=== PATIENT | female | born 1990 | race Caucasian/White ===

== ENCOUNTER 2016-10-25 12:25 | Emergency (ER) | payer OTHER ==
[~2016-10-25] VITALS: Ht 162.6 cm; Wt 95.6 kg
[~2016-10-25 12:25] MED LIST: ADD/10 PO; AMPH1TAB83 PO; ATV/1 PO; BENEFIBER PO; BENZ100C18 PO; BIOTPOW17 PO; BISA10SU38 PR; CLC100 PO; ELET40TA PO; HYDR25SU20 PR; IBUP-1451 PO; LMC/150 PO; LORA10TA51 PO; LRT5 PO; METO1TAB54 PO; MRLP17 PO; NORT75CA4 PO; PROM25TA PO; QUET5TAB PO; SALI0.6510 NAE; SENN-65 PO; SERT50TA PO; SUMA100T16 PO
[2016-10-25 12:27] VITALS: TEMP 36.6; Ht 162.6 cm; Wt 95.6 kg
[2016-10-25] MEDS ORDERED: SODIUM CHLORIDE 0.9% 1000ML 1,000 ML IV STA (12:46)
[2016-10-25] MEDS ORDERED: ONDANSETRON INJ 2 MG/ML 2 ML VIAL IV STA (12:46)
[2016-10-25] MEDS ORDERED: AMPH30TA2 PO (12:51)
[2016-10-25] MEDS ORDERED: CLON0.2T PO (12:51)
[2016-10-25] MEDS ORDERED: WHEATAB2 PO (12:51)
[2016-10-25] MEDS ORDERED: HYDR-4380 PO (12:51)
[2016-10-25] MEDS ORDERED: POLY335019 PO (12:51)
[2016-10-25] MEDS ORDERED: TRAZ1TAB52 PO (12:51)
[2016-10-25] MEDS ORDERED: BIOT1TAB5 PO (12:51)
[2016-10-25] MEDS ORDERED: DOCU-94 PO (12:51)
[2016-10-25] MEDS ORDERED: PROM25TA9 PO (12:51)
[2016-10-25 13:12] LABS: URINE APPEARANCE TURBID (CLEAR); URINE BILIRUBIN NEG (NEG); URINE COLOR DK YELLOW; URINE EPITHELIAL CELL AUTO >30 /lpf (0-5); URINE NITRITE NEG (NEG); URINE PH 5.5 (4.5-7.5); URINE SPECIFIC GRAVITY 1.029 (1.000-1.030); UROBILINOGEN NEG (NEG)
[2016-10-25 13:20] LABS: MANUAL MICROSCOPIC REQUIRED? NO; REVIEW REQ? YES
[2016-10-25 13:27] LABS: BASO % 0.1 %; BASO ABS # 0.01 K/uL (0-0.2); COMPLETE YES; HEMATOCRIT 43.9 % (37-47); IG% 0.2 %; LYMPH % 9.6 %; LYMPH ABS # 0.89 K/uL (1.2-3.4); MEAN CELL VOLUME 92.4 fL (80-100); MEAN CORPUSCULAR HEMOGLOBIN 33.9 pg (25-34); MEAN CORPUSCULAR HGB CONC 36.7 g/dl (32-36); NEUT % 89.1 %; PLATELET COUNT 276 K/uL (130-400); RED BLOOD COUNT 4.75 M/uL (4.2-5.4)
[2016-10-25 13:34] LABS: ALT/SGPT 21 U/L (12-78); BLOOD UREA NITROGEN 11 mg/dl (7-18); BUN/CREATININE RATIO 10.5 (10-20); CALCIUM 10.2 mg/dl (8.5-10.1); CARBON DIOXIDE 26 mmol/L (21-32); CHLORIDE 105 mmol/L (98-107); GLUCOSE 115 mg/dl (70-99); POTASSIUM 3.9 mmol/L (3.5-5.1); SODIUM 139 mmol/L (136-145)
[2016-10-25 13:37] LABS: ALKALINE PHOSPHATASE 80 U/L (45-117); AST/SGOT 11 U/L (15-37)
--- NOTE | 2016-10-25 13:48 | DIAGNOSTIC IMAGING REPORT ---
BILIARY ULTRASOUND CLINICAL HISTORY: Right upper quadrant epigastric pain COMPARISON STUDY: CT scan dated 08/17/2011 FINDINGS: The pancreas appears sonographically normal. No hepatic masses are visualized. There is no right-sided hydronephrosis. There is no ductal dilatation. The gallbladder appears sonographically normal. The common bile duct measures 3 mm. IMPRESSION: Normal biliary ultrasound. Electronically signed by: Shahab Dickey M.D. 10/25/2016 1:47 PM Dictated Date/Time: 10/25/2016 1:46 PM
[2016-10-25] MEDS ORDERED: ONDA4TAB10 SL (14:03)
[2016-10-25 14:14] VITALS: BP 119/74; PULSE 75; O2SAT 96
--- NOTE | 2016-10-25 14:27 | EMERGENCY ROOM VISIT NOTE ---
History Report prepared by Cole: Raul Kam Under the Supervision of: Dr. Tc Meek M.D. First contact with patient: 12:39 Chief Complaint: VOMITING Stated Complaint: VOMITING, NAUSEA History of Present Illness The patient is a 25 year old female who presents to the Emergency Room with complaints of intermittent vomiting that started at 0300 this morning. She rates her discomfort as a 7/10 in severity. She states that she has been experiencing nausea and upper abdominal pain. The patient reports that she had no abdominal pain before vomiting, but admits to abdominal pain due to vomiting. She admits that she is currently nauseous but denies any abdominal pain. The patient states that her last bowel movement was yesterday, which she describes as normal. She states that her last normal menstrual period was three weeks ago and denies any abnormalities. The patient reports that she has a history of fibromyalgia, chronic migraines, scoliosis, and Chiari malformation. She admits that she is treated for hypertension. The patient admits that she was around sick coworkers who have also been vomiting. She denies any fever, diarrhea, abdominal surgery, possible , previous , gallbladder problems, and urinary symptoms. Source of History: patient Onset: 0300 this morning Position: other (global) Symptom Intensity: 7/10 Quality: other (vomiting) Timing: intermittent Associated Symptoms: + nausea, + abdominal pain, No fevers, No diarrhea, No urinary symptoms Review of Systems See HPI for pertinent positives & negatives. A total of 10 systems reviewed and were otherwise negative. Past Medical & Surgical Medical Problems: (1) Chiari malformation (2) Chronic migraine (3) Fibromyalgia (4) Scoliosis Family History Patient reports no known family medical history. Social History Smoking Status: Never Smoker Alcohol Use: occasionally Marital Status: in relationship Occupation Status: employed Current/Historical Medications Scheduled Amphetamine-Dextroamphetamine 30MG (Adderall 30MG), 30 MG PO BID Benzonatate (Tessalon Perles), 100-200 MG PO TID PRN Biotin (Biotin), 1 TAB PO DAILY Bisacodyl (Dulcolax), 1 SUPP MS PRN Clonidine Hcl (Catapres), 0.2 MG PO HS Docusate Sodium (Colace), 1 CAP PO BID Eletriptan Hydrobromide (Relpax), 40 MG PO DIRECTED Hydrocortisone Acetate (Rectal (Anusol-Hc), 25 MG MS AMHS Ibuprofen Tab (Motrin), 800 MG PO Q8H PRN Loratadine (Claritin), 10 MG PO DAILY PRN Lorazepam (Ativan), 1 MG PO BID PRN Metoclopramide Hcl (Reglan), 5 MG PO AC Nortriptyline Hcl (Pamelor), 75 MG PO BID Ondasetron Odt (Zofran Odt), 4 MG SL Q6H Saline ([place] Nasal [place]), 2 SPRAYS CURTIS PRN Sennosides-Docusate Sodium (Senokot S), 15 MG PO BID Sumatriptan Succinate (Imitrex), 100 MG PO UD Trazodone Hcl (Desyrel), 150 MG PO HS Wheat Dextrin (Benefiber), 1 TAB PO DAILY Scheduled PRN Hydrocodone-Acetaminophen (Hydrocodone/Acetaminophen), 5-500 MG PO Q4-6H PRN for Pain Polyethylene Glycol 3350 (Miralax), 17 GM PO DAILY PRN for Constipation Promethazine Hcl (Phenergan), 25 MG PO Q4H PRN for Nausea Allergies Coded Allergies: No Known Allergies (Verified , 10/25/16) Physical Exam Vital Signs Date Time Temp Pulse Resp B/P (MAP) Pulse Ox O2 Delivery O2 Flow Rate FiO2 10/25/16 14:14 75 17 119/74 96 10/25/16 12:27 36.6 80 20 144/84 97 Room Air Physical Exam Constitutional: Vital signs reviewed. Eyes: Pupils are equal round reactive to light. Conjunctiva are noninjected. ENT: Pharynx is clear without erythema or exudate. Mucous membranes are moist. Neck supple without meningeal signs. Respiratory: Clear to auscultation bilaterally. Breath sounds are equal bilaterally. Cardiovascular: Regular rate and rhythm. No rubs or gallops. GI: Soft, nondistended with mild epigastric and right upper quadrant tenderness. No Jones's sign. Bowel sounds are present. Musculoskeletal: No peripheral edema. No CVA tenderness. Integumentary: No cyanosis. Neurological: The patient is awake and alert. No focal deficits. Psychiatric: Normal affect. epigastric ruq mu Medical Decision & Procedures ER Provider Diagnostic Interpretation: Radiology results as stated below per my review and the radiologist's interpretation: BILIARY ULTRASOUND CLINICAL HISTORY: Right upper quadrant epigastric pain COMPARISON STUDY: CT scan dated 08/17/2011 FINDINGS: The pancreas appears sonographically normal. No hepatic masses are visualized. There is no right-sided hydronephrosis. There is no ductal dilatation. The gallbladder appears sonographically normal. The common bile duct measures 3 mm. IMPRESSION: Normal biliary ultrasound. Electronically signed by: Shahab Dickey M.D. 10/25/2016 1:47 PM Dictated Date/Time: 10/25/2016 1:46 PM Laboratory Results 10/25/16 13:00 Red Blood Count 4.75, Mean Corpuscular Volume 92.4, Mean Corpuscular Hemoglobin 33.9, Mean Corpuscular Hemoglobin Concent 36.7, Mean Platelet Volume 11.0, Neutrophils (%) (Auto) 89.1, Lymphocytes (%) (Auto) 9.6, Monocytes (%) (Auto) 1.0, Eosinophils (%) (Auto) 0.0, Basophils (%) (Auto) 0.1, Neutrophils # (Auto) 8.29, Lymphocytes # (Auto) 0.89, Monocytes # (Auto) 0.09, Eosinophils # (Auto) 0.00, Basophils # (Auto) 0.01 10/25/16 13:00 Test 10/25/16 12:50 10/25/16 13:00 Urine Color DK YELLOW Urine Appearance TURBID (CLEAR) Urine pH 5.5 (4.5-7.5) Urine Specific [place] 1.029 (1.000-1.030) Urine Protein TRACE (NEG) Urine Glucose (UA) NEG (NEG) Urine Ketones 2+ (NEG) Urine Occult Blood NEG (NEG) Urine Nitrite NEG (NEG) Urine Bilirubin NEG (NEG) Urine Urobilinogen NEG (NEG) Urine Leukocyte Esterase MODERATE (NEG) Urine WBC (Auto) 0 /hpf (0-5) Urine RBC (Auto) 0-4 /hpf (0-4) Urine Hyaline Casts (Auto) 0 /lpf (0-5) Urine Epithelial Cells (Auto) >30 /lpf (0-5) Urine Bacteria (Auto) 1+ (NEG) Urine Crystals AMORPHOUS SEDIMENT (NONE Urine Pathogenic Casts /lpf (0) Urine Test NEG (NEG) White Blood Count 9.30 K/uL (4.8-10.8) Red Blood Count 4.75 M/uL (4.2-5.4) Hemoglobin 16.1 g/dL (12.0-16.0) Hematocrit 43.9 % (37-47) Mean Corpuscular Volume 92.4 fL (80-100) Mean Corpuscular Hemoglobin 33.9 pg (25-34) Mean Corpuscular Hemoglobin Concent 36.7 g/dl (32-36) Platelet Count 276 K/uL (130-400) Mean Platelet Volume 11.0 fL (7.4-10.4) Neutrophils (%) (Auto) 89.1 % Lymphocytes (%) (Auto) 9.6 % Monocytes (%) (Auto) 1.0 % Eosinophils (%) (Auto) 0.0 % Basophils (%) (Auto) 0.1 % Neutrophils # (Auto) 8.29 K/uL (1.4-6.5) Lymphocytes # (Auto) 0.89 K/uL (1.2-3.4) Monocytes # (Auto) 0.09 K/uL (0.11-0.59) Eosinophils # (Auto) 0.00 K/uL (0-0.5) Basophils # (Auto) 0.01 K/uL (0-0.2) RDW Standard Deviation 37.7 fL (36.4-46.3) RDW Coefficient of Variation 11.2 % (11.5-14.5) Immature Granulocyte % (Auto) 0.2 % Immature Granulocyte # (Auto) 0.02 K/uL (0.00-0.02) Anion Gap 8.0 mmol/L (3-11) Est Creatinine Clear Calc Drug Dose 94.8 ml/min Estimated GFR () 89.4 Estimated GFR (Non- 77.2 BUN/Creatinine Ratio 10.5 (10-20) Calcium Level 10.2 mg/dl (8.5-10.1) Total Bilirubin 0.4 mg/dl (0.2-1) Direct Bilirubin < 0.1 mg/dl (0-0.2) Aspartate Amino Transf (AST/SGOT) 11 U/L (15-37) Alanine Aminotransferase (ALT/SGPT) 21 U/L (12-78) Alkaline Phosphatase 80 U/L (45-117) Total Protein 8.6 gm/dl (6.4-8.2) Albumin 4.2 gm/dl (3.4-5.0) Lipase 90 U/L (73-393) Laboratory results as reviewed by me. Medications Administered Medications (Trade) Dose Ordered Sig/Margarito Route Start Time Stop Time Status Last Admin Dose Admin Ondansetron HCl (Zofran Inj) 4 mg NOW STAT IV 10/25/16 12:46 10/25/16 12:47 DC 10/25/16 12:59 4 MG Sodium Chloride 1,000 ml @ 999 mls/hr Q1H1M STAT IV 10/25/16 12:46 10/25/16 13:46 DC 10/25/16 12:57 999 MLS/HR ED Course 1241: The patient was evaluated in room B12B. A complete history and physical exam was performed. 1246: Ordered Sodium Chloride 1000 ml @ 999 mls/hr IV, Zofran Injection 4 mg IV. 1358: I reviewed test results including UA with the patient. She prefers to hold off on antibiotic therapy until cultures are resulted. She will see if she has a similar finding with her fleet coordinator. The patient is ready for discharge. Medical Decision This is a 25-year-old female who presents with vomiting and upper abdominal pain. Differential diagnosis includes gastritis, foodborne illness, gastroparesis, peptic ulcer disease, cholelithiasis, pancreatitis. I did perform a limited focused review of portions of the patient's old chart on the electronic medical record. The patient has had no recent pertinent visits to this hospital. I did evaluate the patient as noted above. IV access was established. I did treat the patient with Zofran and normal saline IV. I did order and personally review the patient's urinalysis as described above. Findings are equivocal. The urine culture was sent. I did order and review the patient's blood work as noted in the electronic medical record. Her white blood cell count is not elevated. I did order an ultrasound of the right upper quadrant. I did review the images myself as well as the radiology report as described above. There is no evidence of gallbladder disease or acute abnormality. I did reevaluate the patient. She states she is feeling much better. I did discuss the test results with her including the equivocal urinalysis. She stated that she had similar findings when she was tested at her fleet coordinator office. She is currently not having any burning on urination. She has had some frequency but she prefers not to be treated with antibiotics at this time and would prefer to wait for the culture results. The patient was discharged home with a prescription for Zofran and advised follow up with her doctor. Medication Reconcilliation Current Medication List: was personally reviewed by me Blood Pressure Screening Patient's blood pressure: Elevated blood pressure Impression Primary Impression: Vomiting Additional Impression: Upper abdominal pain Scribe Attestation The scribe's documentation has been prepared under my direct and personally reviewed by me in its entirety. I confirm that the note above accurately reflects all work, treatment, procedures, and medical decision making performed by me. Departure Information Dispostion Home / Self-Care Prescriptions Ondasetron Odt (ZOFRAN ODT) 4 Mg Tab 4 MG SL Q6H for Nausea, #6 TAB Prov: Tc Meek M.D. 10/25/16 Referrals Violette Yu M.D. (PCP) Forms HOME CARE DOCUMENTATION FORM, IMPORTANT VISIT INFORMATION Patient Instructions ED Nausea Vomiting, My [facility] Additional Instructions You have been examined and treated today on an emergency basis only. This is not a substitute for, or an effort to provide, complete comprehensive medical care. It is impossible to recognize and treat all injuries or illnesses in a single emergency department visit. It is therefore important that you follow up closely with your physician. Call as soon as possible for an appointment. Return for worsening symptoms or if you develop fever, black or tarry stools, or any other concerning symptoms. Problem Qualifiers Primary Impression: Vomiting Vomiting type: unspecified Vomiting Intractability: non-intractable Nausea presence: with nausea Qualified Codes: R11.2 - Nausea with vomiting, unspecified
== END 2016-10-25 14:15 | disposition home or self-care (01) ==
LOC: C.EDB 12:26
DX: R11.2 Nausea with vomiting, unspecified (principal); R10.10 Upper abdominal pain, unspecified; I10 Essential (primary) hypertension; M41.9 Scoliosis, unspecified

== ENCOUNTER 2017-02-17 12:36 | Observation (INO) | payer OTHER ==
[~2017-02-17] VITALS: Ht 162.6 cm; Wt 84.7 kg
[~2017-02-17 12:36] MED LIST changes: -ADD/10 PO; -AMPH1TAB83 PO; +AMPH30TA2 PO; -BENEFIBER PO; -BENZ100C18 PO; +BIOT1TAB5 PO; -BIOTPOW17 PO; -CLC100 PO; +CLON0.2T PO; +DOCU-94 PO; -ELET40TA PO; +GABA800T PO; +HYDR-4380 PO; -IBUP-1451 PO; +IBUP600T44 PO; -LMC/150 PO; -LRT5 PO; -METO1TAB54 PO; -MRLP17 PO; +ONDA4TAB10 SL; +POLY335019 PO; -PROM25TA PO; +PROM25TA9 PO; -QUET5TAB PO; -SERT50TA PO; +TRAZ1TAB52 PO; +WHEATAB2 PO
[2017-02-17] MEDS ORDERED: SODIUM CHLORIDE 0.9% 1000ML 2,000 ML IV STA (12:52)
[2017-02-17] MEDS ORDERED: PROMETHAZINE HCL INJ 12.5 MG in SODIUM CHLORIDE 0.9% 50ML 50 ML IV STA (12:52)
[2017-02-17] MEDS ORDERED: KETOROLAC TROMETHAMINE 30 MG/ML VIAL IV STA (12:52)
[2017-02-17] MEDS ORDERED: ONDANSETRON INJ 2 MG/ML 2 ML VIAL IV STA (12:52)
--- NOTE | 2017-02-17 13:05 | EMERGENCY ROOM VISIT NOTE ---
History Report prepared by Cole: Tanner Jarrett Under the Supervision of: Dr. Jeff Tobias M.D. First contact with patient: 12:49 Chief Complaint: VOMITING Stated Complaint: VOMITING, HEADACHE Nursing Triage Summary: "I am vomiting and headache on and off for 3 weeks. I am unable to eat and I am losing a lot of weight." Abdominal pain. Denies diarrhea. History of Present Illness The patient is a 26 year old female who presents to the Emergency Room with complaints of persistent vomiting that the patient has been experiencing for the past month. She has been increasingly nauseous/vomiting more frequently for the past three days, and spiked a fever of 102.0 degrees yesterday. This fever broke spontaneously. She is also complaining of intermittent migraine headaches. The patient is currently on her menstrual cycle and commonly experiences migraines during that time. She has followed with a neurologist in the past, until his jail. Her migraine is sensitive to light and noise, and she denies any trauma that could have caused a headache. The patient continues to complain of global weakness, coughing, and nasal congestion. She notes that her girlfriend is a SOFTWARE DESIGN ANALYST and did have the flu this year. She has not had any imaging of her head for multiple years. The patient was recently diagnosed with a UTI and bacterial vaginosis and has been on 4 different antibiotics without relief. Source of History: patient Onset: One month lpta (worse past 3 days) Position: other (GI) Quality: other (Vomit) Timing: worsening, other (Persistent) Associated Symptoms: + fevers, + headache, + cough, + nausea, + urinary symptoms, + weakness Review of Systems See HPI for pertinent positives & negatives. A total of 10 systems reviewed and were otherwise negative. Past Medical & Surgical Medical Problems: (1) ADHD (2) Bipolar disorder (3) Drug abuse (4) Fibromyalgia (5) Gastroparesis (6) IBS (irritable bowel syndrome) (7) Migraine Surgical Problems: (1) History of tonsillectomy and adenoidectomy Family History Patient reports no known family medical history. Social History Smoking Status: Never Smoker Alcohol Use: occasionally Marital Status: in relationship Occupation Status: employed Current/Historical Medications Scheduled Amphetamine-Dextroamphetamine 30MG (Adderall 30MG), 30 MG PO BID Biotin (Biotin), 1 TAB PO DAILY Bisacodyl (Dulcolax), 1 SUPP IN PRN Docusate Sodium (Colace), 1 CAP PO BID Gabapentin (Neurontin), 1 TAB PO BID Hydrocortisone Acetate (Rectal (Anusol-Hc), 25 MG IN AMHS Ibuprofen (Motrin), 600 MG PO BID Loratadine (Claritin), 10 MG PO DAILY PRN Lorazepam (Ativan), 1 MG PO BID PRN Nortriptyline Hcl (Pamelor), 75 MG PO BID Saline ([place] Nasal [place]), 2 SPRAYS CURTIS PRN Sumatriptan Succinate (Imitrex), 100 MG PO UD Trazodone Hcl (Desyrel), 150 MG PO HS Wheat Dextrin (Benefiber), 1 TAB PO DAILY Scheduled PRN Ondasetron Odt (Zofran Odt), 4 MG SL Q6H PRN for Nausea Polyethylene Glycol 3350 (Miralax), 17 GM PO DAILY PRN for Constipation Promethazine Hcl (Phenergan), 25 MG PO Q4H PRN for Nausea Sennosides-Docusate Sodium (Senokot S), 15 MG PO BID PRN for Constipation Allergies Coded Allergies: No Known Allergies (Verified , 02/17/17) Physical Exam Vital Signs Date Time Temp Pulse Resp B/P (MAP) Pulse Ox O2 Delivery O2 Flow Rate FiO2 02/17/17 16:31 37.4 46 18 118/82 Room Air 02/17/17 15:12 48 18 161/84 100 Room Air 02/17/17 13:16 55 02/17/17 12:45 36.3 50 18 131/76 95 Room Air Physical Exam GENERAL: Patient is in mild distress secondary to nausea. HEENT: No acute trauma, normocephalic atraumatic, mucous membranes moist, no nasal congestion, no scleral icterus. NECK: No stridor, no adenopathy, no meningismus, trachea is midline. LUNGS: Scattered crackles at the bases especially on the right. No wheeze, breath sounds equal. HEART: Bradycardic with regular rhythm. No murmurs. ABDOMEN: Soft, nontender, bowel sounds positive, no hernias, no peritonitis. EXTREMITIES: No cyanosis or edema, full range of motion of all the joints without pain or difficulty, no signs for acute trauma. NEUROLOGIC: Oriented x 3, no acute motor or sensory deficits, no focal weakness. SKIN: No rash, no jaundice, no diaphoresis. Medical Decision & Procedures ER Provider Diagnostic Interpretation: Radiology results as stated below per my review and radiologist interpretation: CHEST ONE VIEW PORTABLE CLINICAL HISTORY: Cough. Vomiting. COMPARISON STUDY: Chest radiograph December 11, 2016. FINDINGS: Patient is mildly rotated. Lung volumes are normal. No pneumothorax or pleural effusion is present. Apparent left basilar opacity likely reflects normal vessels or atelectasis. Cardiomediastinal silhouette is unremarkable. Pulmonary vascularity is normal. IMPRESSION: No acute cardiopulmonary findings. Electronically signed by: Robin Sosa M.D. 02/17/2017 1:17 PM Dictated Date/Time: 02/17/2017 1:16 PM Laboratory Results 02/17/17 13:20 Red Blood Count 4.98, Mean Corpuscular Volume 90.6, Mean Corpuscular Hemoglobin 32.5, Mean Corpuscular Hemoglobin Concent 35.9, Mean Platelet Volume 10.4, Neutrophils (%) (Auto) 68.9, Lymphocytes (%) (Auto) 21.3, Monocytes (%) (Auto) 7.0, Eosinophils (%) (Auto) 2.2, Basophils (%) (Auto) 0.4, Neutrophils # (Auto) 6.40, Lymphocytes # (Auto) 1.98, Monocytes # (Auto) 0.65, Eosinophils # (Auto) 0.20, Basophils # (Auto) 0.04 02/17/17 13:20 Test 02/17/17 13:15 02/17/17 13:20 02/17/17 15:10 Influenza Type A Antigen Neg for Influ A (NEG) Influenza Type B Antigen Neg for Influ B (NEG) White Blood Count 9.29 K/uL (4.8-10.8) Red Blood Count 4.98 M/uL (4.2-5.4) Hemoglobin 16.2 g/dL (12.0-16.0) Hematocrit 45.1 % (37-47) Mean Corpuscular Volume 90.6 fL (80-100) Mean Corpuscular Hemoglobin 32.5 pg (25-34) Mean Corpuscular Hemoglobin Concent 35.9 g/dl (32-36) Platelet Count 315 K/uL (130-400) Mean Platelet Volume 10.4 fL (7.4-10.4) Neutrophils (%) (Auto) 68.9 % Lymphocytes (%) (Auto) 21.3 % Monocytes (%) (Auto) 7.0 % Eosinophils (%) (Auto) 2.2 % Basophils (%) (Auto) 0.4 % Neutrophils # (Auto) 6.40 K/uL (1.4-6.5) Lymphocytes # (Auto) 1.98 K/uL (1.2-3.4) Monocytes # (Auto) 0.65 K/uL (0.11-0.59) Eosinophils # (Auto) 0.20 K/uL (0-0.5) Basophils # (Auto) 0.04 K/uL (0-0.2) RDW Standard Deviation 39.8 fL (36.4-46.3) RDW Coefficient of Variation 12.1 % (11.5-14.5) Immature Granulocyte % (Auto) 0.2 % Immature Granulocyte # (Auto) 0.02 K/uL (0.00-0.02) Erythrocyte Sedimentation Rate 38 mm/hr (0-21) Anion Gap 7.0 mmol/L (3-11) Est Creatinine Clear Calc Drug Dose 88.7 ml/min Estimated GFR () 89.9 Estimated GFR (Non- 77.6 BUN/Creatinine Ratio 10.7 (10-20) Calcium Level 9.9 mg/dl (8.5-10.1) Magnesium Level 2.3 mg/dl (1.8-2.4) Total Bilirubin 0.4 mg/dl (0.2-1) Aspartate Amino Transf (AST/SGOT) 19 U/L (15-37) Alanine Aminotransferase (ALT/SGPT) 33 U/L (12-78) Alkaline Phosphatase 85 U/L (45-117) Total Protein 8.7 gm/dl (6.4-8.2) Albumin 4.3 gm/dl (3.4-5.0) Globulin 4.4 gm/dl (2.5-4.0) Albumin/Globulin Ratio 1.0 (0.9-2) Thyroid Stimulating Hormone (TSH) 0.602 uIu/ml (0.300-4.500) Human Chorionic Gonadotropin, Qual NEG (NEG) Urine Color YELLOW Urine Appearance CLOUDY (CLEAR) Urine pH >= 9.0 (4.5-7.5) Urine Specific [place] > 1.045 (1.000-1.030) Urine Protein NEG (NEG) Urine Glucose (UA) NEG (NEG) Urine Ketones 3+ (NEG) Urine Occult Blood 3+ (NEG) Urine Nitrite NEG (NEG) Urine Bilirubin NEG (NEG) Urine Urobilinogen NEG (NEG) Urine Leukocyte Esterase TRACE (NEG) Urine WBC (Auto) 5-10 /hpf (0-5) Urine RBC (Auto) 10-30 /hpf (0-4) Urine Hyaline Casts (Auto) 1-5 /lpf (0-5) Urine Epithelial Cells (Auto) >30 /lpf (0-5) Urine Bacteria (Auto) NEG (NEG) Urine Renal Epithelial Cells /lpf (0-5) Urine Crystals AMORPHOUS SEDIMENT (NONE Urine Opiates Screen POS (NEG) Urine Methadone, Qualitative NEG (NEG) Urine Barbiturates NEG (NEG) Urine Phencyclidine (PCP) Level NEG (NEG) Ur Amphetamine/Methamphetamine NEG (NEG) MDMA (Ecstasy) Screen POS (NEG) Urine Benzodiazepines Screen NEG (NEG) Urine Cocaine Metabolite POS (NEG) Urine Marijuana (THC) POS (NEG) Laboratory results reviewed by me. Medications Administered Medications (Trade) Dose Ordered Sig/Margarito Route Start Time Stop Time Status Last Admin Dose Admin Sodium Chloride 2,000 ml @ 999 mls/hr Q2H1M STAT IV 02/17/17 12:52 02/17/17 14:52 DC 02/17/17 13:37 999 MLS/HR Ondansetron HCl (Zofran Inj) 4 mg NOW STAT IV 02/17/17 12:52 02/17/17 13:01 DC 02/17/17 13:36 4 MG Promethazine HCl 12.5 mg/Sodium Chloride 50.5 ml @ 204 mls/hr NOW STAT IV 02/17/17 12:52 02/17/17 13:06 DC 02/17/17 13:38 204 MLS/HR Ketorolac Tromethamine (Toradol Inj) 30 mg NOW STAT IV 02/17/17 12:52 02/17/17 13:01 DC 02/17/17 13:37 30 MG Metoclopramide HCl (Reglan Inj) 10 mg NOW STAT IV 02/17/17 15:17 02/17/17 15:20 DC 02/17/17 16:03 10 MG Diphenhydramine HCl (Benadryl Inj) 25 mg NOW STAT IV 02/17/17 15:17 02/17/17 15:20 DC 02/17/17 16:02 25 MG Clonidine HCl (Catapres Tab) 0.2 mg NOW ONCE PO 02/17/17 15:45 02/17/17 15:46 DC 02/17/17 16:07 0.2 MG Lorazepam (Ativan Inj) 1 mg NOW STAT IV 02/17/17 15:40 02/17/17 15:41 DC 02/17/17 16:06 1 MG ECG Indication: vomiting Rate (beats per minute): 50 Rhythm: sinus bradycardia Findings: no acute ischemic change, no ectopy ED Course 1252: The patient was evaluated in room B11. A complete history and physical exam was performed. 1252: Ordered Toradol 30 mg IV, Promethazine HCl 50.5 mL @ 204 mL/hr IV, Zofran 4 mg IV, Sodium Chloride 2000 mL @ 999 mL/hr IV. 1515: I checked on the patient at this time. She is still actively vomiting. 1517: Ordered Benadryl 25 mg IV, Reglan 10 mg IV. 1520: I paged for the [facility] at this time. 1536: I spoke with the patient again. She now admits that she has been using heroin recently. She believes her symptoms today are the result of a withdrawal from heroin. 1540: Ordered Ativan 1 mg IV. 1545: Ordered Clonidine HCl 0.2 mg PO. 1607: I checked on the patient at this time. She is agreeable to admission. 1613: I discussed the case with Celina FERNANDEZ. She will evaluate the patient for further treatment Medical Decision Differential Diagnosis includes; Viral illness, migraine headache, UTI, electrolyte imbalance, anemia, dehydration, influenza, influenza like illness, pneumonia, intracranial bleed or mass. There is no leukocytosis or concerning anemia. No significant electrolyte abnormality, kidney failure, hepatitis. The patient appears to be in a euthyroid state. testing is negative. Urinalysis shows dehydration and contamination, no obvious infection. Influenza testing is negative. EKG shows a sinus bradycardia, no acute ischemia. Chest x-ray does not show pneumonia or CHF. Brain CT shows no acute bleed or mass effect. Urine tox shows cocaine, opiates, marijuana and ecstasy. The patient presents with a headache and persistent vomiting. She received IV saline, IV Zofran, IV Phenergan. She was eventually given IV Reglan and IV Benadryl. She received IV Ativan and was given a dose of oral clonidine. Initially, I could not explain the patient's persistent vomiting and symptoms. Her illness seems viral. Towards the end of her ER stay, she admitted that she has been using heroin and has not had heroin in about a day. She felt she was likely withdrawing, this did fit with her presentation. The patient requires hospitalization for further hydration and symptom control. I spoke with her and with case management. The on-call hospitalist was consulted. Consults Time Called: 152 Consulting Physician: Celina FERNANDEZ Returned Call: [phone] I discussed the case with Celina FERNANDEZ. She will evaluate the patient for further treatment Impression Primary Impression: Dehydration Additional Impressions: Vomiting Fatigue Drug withdrawal Scribe Attestation The scribe's documentation has been prepared under my direction and personally reviewed by me in its entirety. I confirm that the note above accurately reflects all work, treatment, procedures, and medical decision making performed by me. Departure Information Dispostion Being Evaluated By Hospitalist Prescriptions Ondasetron Odt (ZOFRAN ODT) 4 Mg Tab 4 MG SL Q6H Y for Nausea, #6 TAB Prov: Celina Noel .JIM 02/17/17 Referrals Violette Yu M.D. (PCP) Patient Instructions [facility] Problem Qualifiers
[2017-02-17] MEDS ORDERED: OPTIRAY 320 IV PRN (13:15)
--- NOTE | 2017-02-17 13:18 | DIAGNOSTIC IMAGING REPORT ---
CHEST ONE VIEW PORTABLE CLINICAL HISTORY: Cough. Vomiting. COMPARISON STUDY: Chest radiograph December 11, 2016. FINDINGS: Patient is mildly rotated. Lung volumes are normal. No pneumothorax or pleural effusion is present. Apparent left basilar opacity likely reflects normal vessels or atelectasis. Cardiomediastinal silhouette is unremarkable. Pulmonary vascularity is normal. IMPRESSION: No acute cardiopulmonary findings. Electronically signed by: Robin Sosa M.D. 02/17/2017 1:17 PM Dictated Date/Time: 02/17/2017 1:16 PM
[2017-02-17 13:50] LABS: BASO % 0.4 %; BASO ABS # 0.04 K/uL (0-0.2); EOS % 2.2 %; HEMATOCRIT 45.1 % (37-47); HEMOGLOBIN 16.2 g/dL (12.0-16.0); IG# 0.02 K/uL (0.00-0.02); LYMPH % 21.3 %; LYMPH ABS # 1.98 K/uL (1.2-3.4); MEAN CELL VOLUME 90.6 fL (80-100); MEAN CORPUSCULAR HEMOGLOBIN 32.5 pg (25-34); MEAN CORPUSCULAR HGB CONC 35.9 g/dl (32-36); MEAN PLATELET VOLUME 10.4 fL (7.4-10.4); MONO ABS # 0.65 K/uL (0.11-0.59); NEUT % 68.9 %; PLATELET COUNT 315 K/uL (130-400); RED CELL DISTRIBUTION WIDTH CV 12.1 % (11.5-14.5); RED CELL DISTRIBUTION WIDTH SD 39.8 fL (36.4-46.3); WHITE BLOOD COUNT 9.29 K/uL (4.8-10.8)
[2017-02-17 14:10] LABS: ALBUMIN 4.3 gm/dl (3.4-5.0); CALCIUM 9.9 mg/dl (8.5-10.1); CREATININE 0.99 mg/dl (0.60-1.20); POTASSIUM 3.6 mmol/L (3.5-5.1)
[2017-02-17 14:21] LABS: TOTAL PROTEIN 8.7 gm/dl (6.4-8.2)
[2017-02-17 14:36] LABS: INFLUENZA B ANTIGEN Neg for Influ B (NEG)
--- NOTE | 2017-02-17 15:01 | DIAGNOSTIC IMAGING REPORT ---
ANGIOGRAPHY HEAD COMBO HISTORY: Headache mental status change TECHNIQUE: Multiaxial CT images of the head were performed both before and after the intravenous administration of contrast to evaluate the major cerebral vessels. Maximum intensity projection images were also obtained. A dose lowering technique was utilized adhering to the principles of ALARA. COMPARISON: 01/22/2012 FINDINGS: There is no mass, hematoma, midline shift, or acute infarct. Visualized intracranial internal carotid arteries, distal vertebral arteries, and basilar artery are widely patent. There is no significant stenosis, occlusion, or aneurysm seen within the bilateral ACAs, MCAs, or flexible nanny. IMPRESSION: No significant stenosis, occlusion, or aneurysm within the [place]. Negative CT of the brain The above report was generated using voice recognition software. It may contain grammatical, syntax or spelling errors. Electronically signed by: Ryan Plaza M.D. 02/17/2017 3:00 PM Dictated Date/Time: 02/17/2017 2:57 PM
[2017-02-17] MEDS ORDERED: DiphenhydrAMINE HCL 50 MG/ML VIAL IV STA (15:17)
[2017-02-17] MEDS ORDERED: METOCLOPRAMIDE HCL INJ 5 MG/ML 2 ML VIAL IV STA (15:17)
[2017-02-17] MEDS ORDERED: LORAZEPAM 2 MG/ML 1 ML VIAL IV STA (15:40)
[2017-02-17] MEDS ORDERED: CLONIDINE HCL 0.1 MG TAB PO ONE (15:45)
[2017-02-17 16:31] VITALS: BP 118/82; PULSE 46; TEMP 37.4; Ht 162.6 cm; Wt 84.7 kg
[2017-02-17] MEDS ORDERED: ACETAMINOPHEN 325 MG TAB PO PRN (16:45)
[2017-02-17] MEDS ORDERED: ONDANSETRON INJ 2 MG/ML 2 ML VIAL IV PRN (16:45)
[2017-02-17] MEDS ORDERED: IV FLUIDS COMPLETED PRN (17:00)
[2017-02-17] MEDS ORDERED: DIAZEPAM INJ 5 MG/ML 2 ML CARP IV PRN (17:15)
[2017-02-17] MEDS ORDERED: NRN/600 PO (17:40)
[2017-02-17] MEDS ORDERED: ONDA4TAB10 SL (17:40)
[2017-02-17] MEDS ORDERED: hydrOXYzine HCL 25 MG TAB PO PRN (17:45)
--- NOTE | 2017-02-17 19:49 | History and Physical ---
History & Physical Date & Time of Service: Feb 17, 2017 ~ 16:15 Chief Complaint: Nausea, Vomiting Primary Care Physician: Violette Yu M.D. History of Present Illness 26 year old female who presents to the ED with nausea and vomiting. Patient reports her symptoms have been going on for the past two weeks. She has a history of heroin use and was clean from April 2016 until January 2017 however started using again. Patient feels like her symptoms are form her recent heroin use. She reports the last time she used was yesterday. Drug screen is also positive for cocaine and MDMA, patient thinks the heroin may have been laced with theses items. Drug screen is also positive for marijuana which she admits to using as well. With her nausea and vomiting, she denies hematemesis or coffee ground emesis. She has some lower abdominal cramping that she attributes to her menses. No diarrhea. She denies chest pain and shortness of breath. No lightheadedness, dizziness, diaphoresis, or syncopal events. She denies fever and chills. No urinary symptoms. In the ED, patient's labs are unremarkable. She was given several medications in the ED to aide in her symptoms: IV Toradol , IVF, IV compazine, IV Zofran, IV Reglan, IV Benadryl, IV Ativan, and PO clonidine. Patient reports the nausea is finally starting to subside. Past Medical/Surgical History Medical Problems: (1) ADHD Status: Chronic (2) Bipolar disorder Status: Chronic (3) Drug abuse Status: Chronic (4) Fibromyalgia Status: Chronic (5) Gastroparesis Status: Chronic (6) IBS (irritable bowel syndrome) Status: Chronic (7) Migraine Status: Chronic Surgical Problems: (1) History of tonsillectomy and adenoidectomy Status: Chronic Family History FH: breast cancer GRANDMOTHER Social History Smoking Status: Never Smoker Alcohol Use: none Drug Use: heroin, marijuana Immunizations History of Tetanus Vaccine?: Yes Tetanus Immunization Date: July 04, 2008 Multi-Drug Resistant Organisms History of MDRO: No Allergies Coded Allergies: No Known Allergies (Verified , 02/17/17) Home Medications Scheduled Amphetamine-Dextroamphetamine 30MG (Adderall 30MG), 30 MG PO BID Biotin (Biotin), 1 TAB PO DAILY Bisacodyl (Dulcolax), 1 SUPP NM PRN Docusate Sodium (Colace), 1 CAP PO BID Gabapentin (Neurontin), 1 TAB PO BID Hydrocortisone Acetate (Rectal (Anusol-Hc), 25 MG NM AMHS Ibuprofen (Motrin), 600 MG PO BID Loratadine (Claritin), 10 MG PO DAILY PRN Lorazepam (Ativan), 1 MG PO BID PRN Nortriptyline Hcl (Pamelor), 75 MG PO BID Saline ([place] Nasal [place]), 2 SPRAYS CURTIS PRN Sumatriptan Succinate (Imitrex), 100 MG PO UD Trazodone Hcl (Desyrel), 150 MG PO HS Wheat Dextrin (Benefiber), 1 TAB PO DAILY Scheduled PRN Ondasetron Odt (Zofran Odt), 4 MG SL Q6H PRN for Nausea Polyethylene Glycol 3350 (Miralax), 17 GM PO DAILY PRN for Constipation Promethazine Hcl (Phenergan), 25 MG PO Q4H PRN for Nausea Sennosides-Docusate Sodium (Senokot S), 15 MG PO BID PRN for Constipation Review of Systems ROS per HPI, all other systems reviewed and negative Physical Exam Vital Signs Date Time Temp Pulse Resp B/P (MAP) Pulse Ox O2 Delivery O2 Flow Rate FiO2 02/17/17 18:11 65 16 122/66 96 02/17/17 16:55 18 97 Room Air 02/17/17 16:31 37.4 46 18 118/82 Room Air 02/17/17 15:12 48 18 161/84 100 Room Air 02/17/17 13:16 55 02/17/17 12:45 36.3 50 18 131/76 95 Room Air General Appearance: WD/WN, + pertinent finding (restless however in no acute distress) Head: normocephalic, atraumatic Eyes: normal inspection, EOMI, sclerae normal ENT: hearing grossly normal, + pertinent finding (mucous membranes moist) Neck: supple, no JVD, trachea midline Respiratory/Chest: lungs clear, normal breath sounds, no respiratory distress Cardiovascular: regular rate, rhythm, no edema, normal peripheral pulses Abdomen/GI: normal bowel sounds, non tender, soft, no organomegaly Extremities/Musculoskelatal: normal inspection, no calf tenderness, normal capillary refill Neurologic/Psych: no motor/sensory deficits, alert, normal mood/affect, oriented x 3 Skin: normal color, warm/dry Diagnostics Laboratory Results Results Past 24 Hours Test 02/17/17 13:15 02/17/17 13:20 02/17/17 15:10 Range/Units Influenza Type A Antigen Neg for Influ A NEG Influenza Type B Antigen Neg for Influ B NEG White Blood Count 9.29 4.8-10.8 K/uL Red Blood Count 4.98 4.2-5.4 M/uL Hemoglobin 16.2 12.0-16.0 g/dL Hematocrit 45.1 37-47 % Mean Corpuscular Volume 90.6 80-100 fL Mean Corpuscular Hemoglobin 32.5 25-34 pg Mean Corpuscular Hemoglobin Concent 35.9 32-36 g/dl Platelet Count 315 130-400 K/uL Mean Platelet Volume 10.4 7.4-10.4 fL Neutrophils (%) (Auto) 68.9 % Lymphocytes (%) (Auto) 21.3 % Monocytes (%) (Auto) 7.0 % Eosinophils (%) (Auto) 2.2 % Basophils (%) (Auto) 0.4 % Neutrophils # (Auto) 6.40 1.4-6.5 K/uL Lymphocytes # (Auto) 1.98 1.2-3.4 K/uL Monocytes # (Auto) 0.65 0.11-0.59 K/uL Eosinophils # (Auto) 0.20 0-0.5 K/uL Basophils # (Auto) 0.04 0-0.2 K/uL RDW Standard Deviation 39.8 36.4-46.3 fL RDW Coefficient of Variation 12.1 11.5-14.5 % Immature Granulocyte % (Auto) 0.2 % Immature Granulocyte # (Auto) 0.02 0.00-0.02 K/uL Erythrocyte Sedimentation Rate 38 0-21 mm/hr Sodium Level 136 136-145 mmol/L Potassium Level 3.6 3.5-5.1 mmol/L Chloride Level 103 98-107 mmol/L Carbon Dioxide Level 26 21-32 mmol/L Anion Gap 7.0 3-11 mmol/L Blood Urea Nitrogen 11 7-18 mg/dl Creatinine 0.99 0.60-1.20 mg/dl Est Creatinine Clear Calc Drug Dose 88.7 ml/min Estimated GFR () 89.9 Estimated GFR (Non- 77.6 BUN/Creatinine Ratio 10.7 10-20 Random Glucose 99 70-99 mg/dl Calcium Level 9.9 8.5-10.1 mg/dl Magnesium Level 2.3 1.8-2.4 mg/dl Total Bilirubin 0.4 0.2-1 mg/dl Aspartate Amino Transf (AST/SGOT) 19 15-37 U/L Alanine Aminotransferase (ALT/SGPT) 33 12-78 U/L Alkaline Phosphatase 85 45-117 U/L Total Protein 8.7 6.4-8.2 gm/dl Albumin 4.3 3.4-5.0 gm/dl Globulin 4.4 2.5-4.0 gm/dl Albumin/Globulin Ratio 1.0 0.9-2 Thyroid Stimulating Hormone (TSH) 0.602 0.300-4.500 uIu/ml Human Chorionic Gonadotropin, Qual NEG NEG Urine Color YELLOW Urine Appearance CLOUDY CLEAR Urine pH >= 9.0 4.5-7.5 Urine Specific [place] > 1.045 1.000-1.030 Urine Protein NEG NEG Urine Glucose (UA) NEG NEG Urine Ketones 3+ NEG Urine Occult Blood 3+ NEG Urine Nitrite NEG NEG Urine Bilirubin NEG NEG Urine Urobilinogen NEG NEG Urine Leukocyte Esterase TRACE NEG Urine WBC (Auto) 5-10 0-5 /hpf Urine RBC (Auto) 10-30 0-4 /hpf Urine Hyaline Casts (Auto) 1-5 0-5 /lpf Urine Epithelial Cells (Auto) >30 0-5 /lpf Urine Bacteria (Auto) NEG NEG Urine Renal Epithelial Cells 0-5 /lpf Urine Crystals AMORPHOUS SEDIMENT NONE PRSENT Urine Opiates Screen POS NEG Urine Methadone, Qualitative NEG NEG Urine Barbiturates NEG NEG Urine Phencyclidine (PCP) Level NEG NEG Ur Amphetamine/Methamphetamine NEG NEG MDMA (Ecstasy) Screen POS NEG Urine Benzodiazepines Screen NEG NEG Urine Cocaine Metabolite POS NEG Urine Marijuana (THC) POS NEG Diagnostic Radiology HEAD CTA IMPRESSION: No significant stenosis, occlusion, or aneurysm within the [place]. Negative CT of the brain CXR IMPRESSION: No acute cardiopulmonary findings. Impression Assessment and Plan NAUSEA, VOMITING DRUG ABUSE - admit to tele - patient presenting with nausea and vomiting x 2 weeks; attributes her symptoms to resuming use of heroin - was clean from April 2016 until January; drug screen is also positive for cocaine and MDMA, patient thinks the heroin may have been laced with theses items. Drug screen is also shows marijuana which she admits to using as well - suspect symptoms are due to recent drug use, possible cannabis hyperemesis syndrome - continue supportive care with IVF and antiemetics; PRN clonidine and Valium for withdrawal symptoms - patient reports she has been on methadone in the past and is not interested in resuming - mental health consult re: substance abuse BIPOLAR DISORDER, ADHD - continue gabapentin, trazodone, nortriptyline, and Adderall DVT PROPHYLAXIS - SCDs, ambulate DISPO - The patient will be placed as observation status for now until further work up is complete. ADDENDUM: Saw/examined the patient in room B11 She is anxious, tremulous, cannot find a comfortable position. States she used heroin, which may have been laced with cocaine yesterday. [place] nauseous today. in the ED, was given Zofran, clonidine, but still no improvement Has had issues with heroin in the past; and was once on methadone. Refusing methadone this time Plan: Will control symptoms with clonidine PRN, Zofran, Phenergan PRN, Valium PRN psych consult, CM consulted for possible outpatient rehab Advanced Directives Existing Living Will: No Existing Power of Roving Weight Gauger: No VTE Prophylaxis VTE Risk Assessment Done? Y/N: Yes Risk Level: Low
[2017-02-17] MEDS: D5W AND NSS 1,000 ML IV SCH (19:51)
[2017-02-17] MEDS ORDERED: INFLUENZA VIRUS QUAD VACCINE 0.5 ML SYR IM. ONE (20:00)
[2017-02-17] MEDS ORDERED: INFLUENZA ADMINISTRATION CHARGE ONE (20:00)
[2017-02-17 20:01] VITALS: O2SAT 96
[2017-02-17] MEDS: AMPHETAMINE ASP/SULF/DEXTRAMPH 10 MG TAB PO SCH (20:32)
[2017-02-17] MEDS: GABAPENTIN 600 MG TAB PO SCH (20:32)
[2017-02-17] MEDS: NORTRIPTYLINE HCL 25 MG CAP PO SCH (20:33)
[2017-02-17] MEDS ORDERED: TRAZODONE HCL 50 MG TAB PO SCH (21:00)
--- NOTE | 2017-02-17 21:12 | DIAGNOSTIC IMAGING REPORT ---
KUB CLINICAL HISTORY: Abdominal pain and vomiting COMPARISON STUDY: No previous studies for comparison. FINDINGS: There is a mild spinal curvature convex to the right. There is no pathologic bowel dilatation. No transition zones are evident. There are tiny nonspecific pelvic basin calcifications. IMPRESSION: No evidence of pathologic bowel dilatation. Electronically signed by: Shahab Dickey M.D. 02/17/2017 9:10 PM Dictated Date/Time: 02/17/2017 9:10 PM
[2017-02-17] MEDS: CLONIDINE HCL 0.1 MG TAB PO PRN (21:18)
[2017-02-18] VITALS (8 sets, daily range): BP systolic 96–117; BP diastolic 57–72; PULSE 45–81; TEMP 36.5–37; O2SAT 92–96
[2017-02-18 07:28] LABS: HEMATOCRIT 37.9 % (37-47); HEMOGLOBIN 13.5 g/dL (12.0-16.0); MEAN CELL VOLUME 90.7 fL (80-100); MEAN CORPUSCULAR HEMOGLOBIN 32.3 pg (25-34); MEAN CORPUSCULAR HGB CONC 35.6 g/dl (32-36); MEAN PLATELET VOLUME 10.6 fL (7.4-10.4); PLATELET COUNT 283 K/uL (130-400); RED CELL DISTRIBUTION WIDTH CV 11.9 % (11.5-14.5); RED CELL DISTRIBUTION WIDTH SD 39.7 fL (36.4-46.3); WHITE BLOOD COUNT 11.88 K/uL (4.8-10.8)
[2017-02-18 08:06] LABS: CALCIUM 8.7 mg/dl (8.5-10.1); CREATININE 0.8 mg/dl (0.60-1.20); POTASSIUM 3.4 mmol/L (3.5-5.1)
[2017-02-18] MEDS: GABAPENTIN 600 MG TAB PO SCH (08:28)
[2017-02-18] MEDS: NORTRIPTYLINE HCL 25 MG CAP PO SCH ×2 (08:28→08:42)
[2017-02-18] MEDS: AMPHETAMINE ASP/SULF/DEXTRAMPH 10 MG TAB PO SCH (08:41)
[2017-02-18] MEDS: D5W AND NSS 1,000 ML IV SCH (08:41)
[2017-02-18] MEDS: CLONIDINE HCL 0.1 MG TAB PO PRN ×2 (08:44→14:25)
[2017-02-18] MEDS ORDERED: POTASSIUM CHLORIDE 20 MEQ TABCR PO ONE (16:00)
--- NOTE | 2017-02-18 16:03 | Progress Note ---
Medicine Progress Note Date & Time of Visit: Feb 18, 2017 at 16:03 . Subjective Doing well. No fever. No chest pain, cough, SOB. No nausea, vomiting, diarrhea. Would like to go home. . Objective Last 8 Hrs Date Time Temp Pulse Resp B/P (MAP) Pulse Ox O2 Delivery O2 Flow Rate FiO2 02/18/17 15:52 36.8 45 16 117/68 (84) 94 Room Air 02/18/17 12:00 Room Air 02/18/17 11:11 36.6 81 18 114/72 (86) 92 Room Air Physical Exam: General- no distress Eyes- anicteric Lungs- clear Heart- RRR Abdomen- + BS, soft, nontender Extremities- no pretibial edema or calf tenderness Neuro- alert, oriented Skin- warm & dry . Laboratory Results: Last 24 Hours Test 02/18/17 06:50 White Blood Count 11.88 K/uL Red Blood Count 4.18 M/uL Hemoglobin 13.5 g/dL Hematocrit 37.9 % Mean Corpuscular Volume 90.7 fL Mean Corpuscular Hemoglobin 32.3 pg Mean Corpuscular Hemoglobin Concent 35.6 g/dl RDW Standard Deviation 39.7 fL RDW Coefficient of Variation 11.9 % Platelet Count 283 K/uL Mean Platelet Volume 10.6 fL Sodium Level 140 mmol/L Potassium Level 3.4 mmol/L Chloride Level 108 mmol/L Carbon Dioxide Level 26 mmol/L Anion Gap 6.0 mmol/L Blood Urea Nitrogen 6 mg/dl Creatinine 0.80 mg/dl Est Creatinine Clear Calc Drug Dose 110.3 ml/min Estimated GFR () 116.3 Estimated GFR (Non- 100.3 BUN/Creatinine Ratio 7.9 Random Glucose 93 mg/dl Calcium Level 8.7 mg/dl Assessment & Plan NAUSEA / VOMITING Presented to ED with intermittent nausea and vomiting. LFT's OK. KUB unremarkable. Symptoms resolved. GI symptoms could be secondary to NSAID use, recreational drug use (including hyperemesis from marijuana), other etiologies. No further evaluation at this time since symptoms have improved. Further evaluation as outpatient if symptom worsen. HEADACHES Chronic migraine headaches. Severe headache day of admission. CT head and with CTA negative. Improved by discharge. Advised to avoid NSAID's if possible due to GI symptoms. Continue other usual meds. RECREATIONAL DRUG USE Tox screen + for opiates, MDMA, cocaine, marijuana. Patient admits using heroin nasally. Other substances may have been mixed with heroin without her knowledge. Counseling / rehab recommended and patient given resource information. VTE PROPHYLAXIS SCD's. DISPOSITION Discharge to home. Internal Medicine follow-up with Dr. Violette Yu. . Procedures: CT head CTA intracranial vessels . Current Inpatient Medications: Current Inpatient Medications Medications (Trade) Dose Ordered Sig/Margarito Route Start Time Stop Time Status Last Admin Dose Admin Ioversol (Optiray 320) 100 ml UD PRN IV 02/17/17 13:15 02/21/17 13:14 Acetaminophen (Tylenol Tab) 650 mg Q4H PRN PO 02/17/17 16:45 03/19/17 16:44 Ondansetron HCl (Zofran Inj) 4 mg Q6H PRN IV 02/17/17 16:45 03/19/17 16:44 02/17/17 19:41 4 MG Dextrose/Sodium Chloride 1,000 ml @ 80 mls/hr [id number] IV 02/17/17 20:00 03/19/17 19:59 02/18/17 08:41 80 MLS/HR Miscellaneous (Iv Fluids Completed) 1 ea PRN PRN N/A 02/17/17 17:00 02/17/18 16:59 Clonidine HCl (Catapres Tab) 0.1 mg Q6H PRN PO 02/17/17 17:15 03/19/17 17:14 02/18/17 14:25 0.1 MG Diazepam (Valium Inj) 5 mg Q6H PRN IV 02/17/17 17:15 03/19/17 17:14 Hydroxyzine HCl (Vistaril Tab) 25 mg HS PRN PO 02/17/17 17:45 03/19/17 17:44 Gabapentin (Neurontin Tab) 600 mg BID PO 02/17/17 21:00 03/19/17 20:59 02/18/17 08:28 600 MG Nortriptyline HCl (Pamelor Cap) 75 mg BID PO 02/17/17 21:00 03/19/17 20:59 Trazodone HCl (Desyrel Tab) 150 mg HS PO 02/17/17 21:00 03/19/17 20:59 02/17/17 20:32 150 MG Amphetamine Aspartate/ Amphetam Sulf (Amphetamine Aspartate/Amph Sulf/Dextramphet) 30 mg BID PO 02/17/17 21:00 03/19/17 20:59 02/18/17 08:41 30 MG
--- NOTE | 2017-02-18 16:11 | Discharge Instructions ---
Discharge Instructions Date of Service Feb 18, 2017. Admission Reason for Admission: nausea and vomiting . Discharge Discharge Diagnosis / Problem: nausea and vomiting Discharge Goals Goal(s): Improve disease control Activity Recommendations Activity Limitations: resume your previous activity . Instructions / Follow-Up Instructions / Follow-Up APPOINTMENTS: INTERNAL MEDICINE 02/23/2017 1:00 PM Violette Yu MD OTHER INSTRUCTIONS: Best to avoid pain medicines like ibuprofen (Motrin and Advil), naproxen (Aleve) , and other similar medications if possible because they can upset your stomach. May use acetaminophen (Tylenol Extra Strength) 2 pills every 8 hours as needed for pain. Please let Dr. Yu know if you continue to have stomach problems. Seek medical attention if you have: * temperature above 101 * chest pain, cough, or trouble breathing * abdominal pain, nausea, vomiting * diarrhea, dark stools or bloody stools * any unanswered questions or concerns Call 911 if symptoms are severe. Call if you have any questions or problems. My cell # is [phone]. You can also reach a [facility] hospitalist on duty at [facility] 24 hours a day by calling [phone]. Please take good care of yourself. Bg Miller . Current Hospital Diet Patient's current hospital diet: Regular Diet Discharge Diet Recommended Diet: Regular Diet Pending Studies Studies pending at discharge: no Medical Emergencies . Who to Call and When: Medical Emergencies: If at any time you feel your situation is an emergency, please call 911 immediately. . Non-Emergent Contact Non-Emergency issues call your: Primary Care Provider, Hospital Doctor . . "Provider Documentation" section prepared by Bg Miller. . VTE Core Measure Inpt VTE Proph given/why not?: SCD's
[2017-02-18] MEDS ORDERED: ACET-1138 PO (16:13)
--- NOTE | 2017-02-19 12:50 | Discharge Summary ---
Discharge Summary Date of Service Feb 19, 2017. Discharge Summary Admission Date: Feb 17, 2017 at 16:45 Discharge Date: Feb 18, 2017 Discharge Disposition: Home Principal Diagnosis: severe nausea / vomiting headache . Secondary Diagnoses/Problems: Chronic and Resolved Medical Problems: (1) ADHD Status: Chronic (2) Bipolar disorder Status: Chronic (3) Drug abuse Status: Chronic (4) Fibromyalgia Status: Chronic (5) Gastroparesis Status: Chronic (6) IBS (irritable bowel syndrome) Status: Chronic (7) Migraine Status: Chronic Surgical Problems: (1) History of tonsillectomy and adenoidectomy Status: Chronic . Procedures: CT head CTA intracranial vessels . Medication Reconciliation New Medications: Acetaminophen (Tylenol Extra Strength) 500 Mg Tab 1000 MG PO Q8H PRN for Pain, #30 TAB Continued Medications: Amphetamine-Dextroamphetamine 30MG (Adderall 30MG) 1 Tab Tab 30 MG PO BID, TAB Biotin (Biotin) 1,000 Mcg Tab 1 TAB PO DAILY Bisacodyl (Dulcolax) 10 Mg Sup 1 SUPP OK PRN, SUP Docusate Sodium (Colace) 100 Mg Cap 1 CAP PO BID for 30 Days, #60 CAP Gabapentin (Neurontin) 600 Mg Tab 1 TAB PO BID for 30 Days, #60 TAB 3 Refills Hydrocortisone Acetate (Rectal (Anusol-Hc) 25 Mg Sup 25 MG OK AMHS, SUP PRN Ibuprofen (Motrin) 600 Mg Tab 600 MG PO BID PRN for Pain, #15 TAB Take with food. Try not to use unless absolutely necessary. Loratadine (Claritin) 10 Mg Tab 10 MG PO DAILY PRN, TAB Lorazepam (Ativan) 1 Mg Tab 1 MG PO BID PRN, TAB Nortriptyline Hcl (Pamelor) 75 Mg Cap 75 MG PO BID, CAP Ondasetron Odt (Zofran Odt) 4 Mg Tab 4 MG SL Q6H PRN for Nausea, #6 TAB Polyethylene Glycol 3350 (Miralax) 1 Pow Pow 17 GM PO DAILY PRN for Constipation, #255 GM Promethazine Hcl (Phenergan) 25 Mg Tab 25 MG PO Q4H PRN for Nausea, TAB Saline ([place] Nasal [place]) 0.65 % Spr 2 SPRAYS CURTIS PRN Sennosides-Docusate Sodium (Senokot S) 1 Tab Tab 15 MG PO BID PRN for Constipation, TAB Sumatriptan Succinate (Imitrex) 100 Mg Tab 100 MG PO UD, TAB Trazodone Hcl (Desyrel) 150 Mg Tab 150 MG PO HS, TAB Wheat Dextrin (Benefiber) 1 Tab Tab 1 TAB PO DAILY Admission Information HPI (per Admitting provider): 26 year old female who presents to the ED with nausea and vomiting. Patient reports her symptoms have been going on for the past two weeks. She has a history of heroin use and was clean from April 2016 until January 2017 however started using again. Patient feels like her symptoms are form her recent heroin use. She reports the last time she used was yesterday. Drug screen is also positive for cocaine and MDMA, patient thinks the heroin may have been laced with theses items. Drug screen is also positive for marijuana which she admits to using as well. With her nausea and vomiting, she denies hematemesis or coffee ground emesis. She has some lower abdominal cramping that she attributes to her menses. No diarrhea. She denies chest pain and shortness of breath. No lightheadedness, dizziness, diaphoresis, or syncopal events. She denies fever and chills. No urinary symptoms. In the ED, patient's labs are unremarkable. She was given several medications in the ED to aide in her symptoms: IV Toradol , IVF, IV compazine, IV Zofran, IV Reglan, IV Benadryl, IV Ativan, and PO clonidine. Patient reports the nausea is finally starting to subside. . Physical Exam (per Admitting): General Appearance: WD/WN, + pertinent finding (restless however in no acute distress) Head: normocephalic, atraumatic Eyes: normal inspection, EOMI, sclerae normal ENT: hearing grossly normal, + pertinent finding (mucous membranes moist) Neck: supple, no JVD, trachea midline Respiratory/Chest: lungs clear, normal breath sounds, no respiratory distress Cardiovascular: regular rate, rhythm, no edema, normal peripheral pulses Abdomen/GI: normal bowel sounds, non tender, soft, no organomegaly Extremities/Musculoskelatal: normal inspection, no calf tenderness, normal capillary refill Neurologic/Psych: no motor/sensory deficits, alert, normal mood/affect, oriented x 3 Skin: normal color, warm/dry Hospital Course NAUSEA / VOMITING Presented to ED with intermittent nausea and vomiting. LFT's OK. Urine beta HCG negative. KUB unremarkable. Symptoms resolved. GI symptoms could be secondary to NSAID use, recreational drug use (including hyperemesis from marijuana), other etiologies. History of gastroparesis (mild) per gastric emptying scan 2008. GB US 10/25/[address] abdomen and pelvis 12/11/16 unremarkable except for slightly decreased attenuation of head of pancreas and moderate constipation (LFT's and lipase were normal at that time). No further evaluation at this time since symptoms have improved. Further evaluation as outpatient if symptoms recur / worsen. HEADACHES Chronic migraine headaches. Severe headache day of admission. CT head and with CTA negative. Improved by discharge. Advised to avoid NSAID's if possible due to GI symptoms. Continue other usual meds. RECREATIONAL DRUG USE Tox screen + for opiates, MDMA, cocaine, marijuana. Patient admits using heroin nasally. Some of the other substances detected on tox screen may have been mixed with heroin without her knowledge. Marijuana could be causing nausea & vomiting. Counseling / rehab recommended and patient given resource information. VTE PROPHYLAXIS SCD's. DISPOSITION Discharge to home. Internal Medicine follow-up with Dr. Violette Yu. . Total time spent on discharge = This includes examination of the patient, discharge planning, medication reconciliation, and communication with other providers. Discharge Instructions Date of Service Feb 18, 2017. Admission Reason for Admission: nausea and vomiting . Discharge Discharge Diagnosis / Problem: nausea and vomiting Discharge Goals Goal(s): Improve disease control Activity Recommendations Activity Limitations: resume your previous activity . Instructions / Follow-Up Instructions / Follow-Up APPOINTMENTS: INTERNAL MEDICINE 02/23/2017 1:00 PM Violette Yu MD OTHER INSTRUCTIONS: Best to avoid pain medicines like ibuprofen (Motrin and Advil), naproxen (Aleve) , and other similar medications if possible because they can upset your stomach. May use acetaminophen (Tylenol Extra Strength) 2 pills every 8 hours as needed for pain. Please let Dr. Yu know if you continue to have stomach problems. Seek medical attention if you have: * temperature above 101 * chest pain, cough, or trouble breathing * abdominal pain, nausea, vomiting * diarrhea, dark stools or bloody stools * any unanswered questions or concerns Call 911 if symptoms are severe. Call if you have any questions or problems. My cell # is [phone]. You can also reach a [facility] hospitalist on duty at [facility] 24 hours a day by calling [phone]. Please take good care of yourself. Bg Miller . Current Hospital Diet Patient's current hospital diet: Regular Diet Discharge Diet Recommended Diet: Regular Diet Pending Studies Studies pending at discharge: no Medical Emergencies . Who to Call and When: Medical Emergencies: If at any time you feel your situation is an emergency, please call 911 immediately. . Non-Emergent Contact Non-Emergency issues call your: Primary Care Provider, Hospital Doctor . . "Provider Documentation" section prepared by Bg Miller. . VTE Core Measure Inpt VTE Proph given/why not?: SCD's . Additional Copies To Violette Yu M.D.
== END 2017-02-18 17:25 | disposition home or self-care (01) ==
LOC: C.EDB 12:37 → C.2T 16:45 → ENRESERV 17:00
PROVIDERS: ADMIT Family Medicine; ATTEND Hospitalist
DX: R11.2 Nausea with vomiting, unspecified (principal); R51 Headache; R53.83 Other fatigue; F11.10 Opioid abuse, uncomplicated; F12.10 Cannabis abuse, uncomplicated; F90.9 Attention-deficit hyperactivity disorder, unspecified type; F31.9 Bipolar disorder, unspecified; M79.7 Fibromyalgia; K31.84 Gastroparesis; K58.9 Irritable bowel syndrome, unspecified; Z80.3 Family history of malignant neoplasm of breast

== ENCOUNTER 2022-12-23 07:31 | Inpatient (IN) ==
[2022-12-23] MEDS ORDERED: LIDOCAINE 1% LOCAL 20 ML VIAL INFIL PRN (08:24)
[2022-12-23] MEDS ORDERED: OXYTOCIN 30 UNITS/NSS 30 UNITS/500 ML BAG IV PRN ×3 (08:24→20:35)
[2022-12-23] MEDS: LACTATED RINGER'S 1,000 ML IV PRN ×2 (08:45→11:00)
--- NOTE | 2022-12-23 08:53 | History & Physical Report ---
"Date of Service December 23, 2022 Assessment & Plan (1) Encounter for induction of labor: Plan ortiz bulb out pitocin arom when indicated monitor tracing, category 1 Admission and Anticipated Discharge Date Admission Date: December 23, 2022 History of Present Illness Chief Complaint: IOL Primary Care Provider: Sukhjinder Engel MD 32 yo G1 at 41w2d admitted for IOL for post dates. Ortiz bulb placed yesterday, fell out spontaneously last night. Denies GALLAGHER, CP, SOB, N/V/D, LE pain. GBS neg, RH+ Allergies Allergy/AdvReac Type Severity Reaction Status Date / Time buprenorphine [From Suboxone] AdvReac Migraine Verified 12/23/22 08:06 latex AdvReac Hives Verified 12/23/22 08:37 naloxone [From Suboxone] AdvReac Migraine Verified 12/23/22 08:06 Home Medications Medication Instructions Recorded Confirmed Type buprenorphine HCl 2 mg sublingual 8 mg sublingual 2XD 05/14/22 12/23/22 History tablet ondansetron 4 mg disintegrating 4 mg PO Q6 PRN nausea and vomiting 05/14/22 12/23/22 Rx tablet #14 tabs vit no.95-ferrous 1 tab PO DAILY 05/14/22 12/23/22 History fumarate 28 mg-folic acid 800 mcg tablet () sertraline 25 mg tablet 25 mg PO DAILY 05/14/22 12/23/22 History Patient History Medical History Anxiety Depression Chiari malformation unrepaired Hypertension controlled, stable per pt Scoliosis lumbar, denies h/o surgical intervention ADHD Drug abuse abused heroin, 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 Did rehab 2013 Fibromyalgia Gastroparesis IBS (irritable bowel syndrome) Migraine with aura, occasionally just auras, notes improvement since onset of Surgical History History of tonsillectomy and adenoidectomy Family History Grandmother (Maternal) Breast cancer Diabetes Grandfather Diabetes Hypertension Denies family history of Ovarian cancer Colorectal cancer Social History Smoking Status: Never smoker Second Hand Exposure: No; Do You Dip or Chew Tobacco: No; Hx Alcohol Use: No Hx Substance Use: No Preferred Language: Uzbek Supervisor Electric Required: No Beliefs That Will Affect Care: None marital status: Single marital status details: basia dickens [phone] Current Living Situation: Significant Other and Other Current Living Situation Comment: Patient lives with boyfriend and his parents. current occupational status: unemployed current occupation: previously incarcerated, on probation program for next 90 days Feels Safe at Home: Yes Safety Concerns: Feels Safe At This Time Review of Systems reviewed, per HPI Physical Exam Physical Exam: General: patient resting comfortably, NAD, non-toxic in appearance, answers questions appropriately. Skin: warm, dry, intact HEENT: NC/AT, anicteric sclera, conjunctiva without injection, moist mucus membranes Heart: +S1/S2, regular, no m/r/g Lungs: equal air entry bilaterally, no rales/rhonchi/wheezes Abd: +BS, soft, NT, gravid uterus Cervical: 4|80|-2|, uterus posterior, estimated weight 7-8+lbs Ext: warm, no clubbing/cyanosis or edema Neuro: speech intact, no facial droop, moving all extremities on command. : FHR baseline 130-135, moderate variability, accelerations present, decelerations absent Results & Data Vital Signs (Past 12 Hours) Vital Signs Temp Pulse Resp BP 12/23/22 08:15 36.9 C 100 H 16 130/73 12/23/22 07:36 100 H 130/73 Supervising Physician Co-Signing Physician Notes Resident Physician Supervision Note: I was present with Dr. Young during the history and exam. I discussed the case with the resident and agree with the findings and plan as documented in the note. Any exceptions or clarifications are listed here: [None] Documented By: Queta Matthews MD, FACOG Resident Activity Tracking Resident Involvement: Resident Care Provided Care Provided: Adult Hospital Medicine"
[2022-12-23 09:15] LABS: Hemoglobin 11.8 g/dl (12.0-16.0); Mean Corpuscular Hemoglobin 31.5 pg (25.0-34.0); Mean Corpuscular Hgb Conc 34.7 g/dL (32.0-36.0); Mean Corpuscular Volume 90.7 fL (80.0-100.0); Mean Platelet Volume 10.6 fL (9.4-12.4); Platelet Count 225 K/uL (130-400); RDW Coefficient of Variation 12.5 % (11.5-14.5); Red Blood Count 3.75 M/uL (4.20-5.40); White Blood Count 9.63 K/ul (4.8-10.8)
[2022-12-23] MEDS ORDERED: fentaNYL citrate PF 100 MCG/2 ML VIAL ONE (10:38)
[2022-12-23] MEDS ORDERED: ePHEDrine sulfate 50 MG/ML AMP ONE (10:38)
[2022-12-23] MEDS ORDERED: BUPIVACAINE 0.25% PF 30 ML VIAL ONE (10:39)
[2022-12-23] MEDS ORDERED: SODIUM CHLORIDE 0.9% PF INJ 10 ML VIAL ONE (10:39)
[2022-12-23] MEDS ORDERED: fentANYL 2 MCG/ML BUPIVacaine 0.125%-NSS 100ML BAG ONE (10:39)
[2022-12-23] MEDS ORDERED: LIDOCAINE 2%/EPINEPHRINE 1:200,000 20 ML PF ONE ×2 (10:39→11:07)
[2022-12-23] MEDS ORDERED: ROPIVACAINE 0.5% PF 5 MG/ML 20 ML VIAL EPI PRN (11:33)
[2022-12-23] MEDS ORDERED: NALBUPHINE HCL 5 MG in SYRINGE 0 ML IV PRN (11:33)
[2022-12-23] MEDS ORDERED: fentaNYL citrate PF 100 MCG/2 ML VIAL EPI STA (11:33)
[2022-12-23] MEDS ORDERED: BUPIVACAINE 0.25% PF 30 ML VIAL EPI STA (11:33)
[2022-12-23] MEDS ORDERED: diphenhydrAMINE 50 MG/ML VIAL IV PRN (11:33)
[2022-12-23] MEDS ORDERED: NALOXONE HCL 1 MG in SODIUM CHLORIDE 0.9% 1,000 ML IV PRN (11:33)
[2022-12-23] MEDS ORDERED: SODIUM CHLORIDE 0.9% PF INJ 10 ML VIAL EPI PRN (11:33)
[2022-12-23] MEDS ORDERED: fentANYL 2 MCG/ML BUPIVacaine 0.125%-NSS 100ML BAG EPI PRN (11:33)
[2022-12-23] MEDS ORDERED: SODIUM CHLORIDE 0.9% PF INJ 10 ML VIAL EPI STA (11:33)
[2022-12-23] MEDS ORDERED: ONDANSETRON INJ 2 MG/ML 2 ML VIAL IV PRN (11:33)
[2022-12-23] MEDS ORDERED: LIDOCAINE 2%/EPINEPHRINE 1:200,000 20 ML PF EPI STA (11:33)
[2022-12-23] MEDS ORDERED: NALOXONE HCL 0.4 MG/1 ML VIAL/CARP IV PRN (11:33)
[2022-12-23] MEDS ORDERED: BUPIVACAINE 0.25% PF 30 ML VIAL EPI PRN (11:33)
[2022-12-23] MEDS ORDERED: ePHEDrine sulfate 50 MG/ML AMP IV PRN (11:33)
[2022-12-23] MEDS ORDERED: fentaNYL citrate PF 100 MCG/2 ML VIAL EPI PRN (11:33)
[2022-12-23] MEDS ORDERED: LIDOCAINE 2% MPF LOCAL 5 ML VIAL EPI PRN (11:33)
[2022-12-23] MEDS ORDERED: NURSING L&D Epidural Breakthrough Pain Update ONE (13:44)
--- NOTE | 2022-12-23 14:40 | Anesthesia Procedure Note ---
Date of Service December 23, 2022 Anesthesia Epidural Re-Dose Vital Signs Temp Pulse Resp BP Pulse Ox 98.2 F 88 18 138/90 96 12/23/22 13:55 12/23/22 14:29 12/23/22 13:55 12/23/22 14:29 12/23/22 14:28 Notes Pain Intensity: 6 Dilatation (cm): 4.5 Effacement (%): 100 Called by nursing to evaluate epidural as the patient is having increased pain. The epidural was re-dosed with the following medications after negative aspiration of the epidural catheter for CSF/HEME. 4mL of 0.25% Bupivacaine and 50mcg fentanyl After Epidural Re-Dose Mental Status: alert / awake / arousable Pain: improving with treatment Airway Patency, RR, SpO2: stable & adequate BP & HR: stable & adequate
--- NOTE | 2022-12-23 19:20 | Labor Progress Brief Note ---
Date of Service December 23, 2022 Patient has progressed to fully dilated and is pushing heart rate initially had some variable decelerations and the Pitocin was briefly stopped but has been restarted heart rate is category 1 now she has started to show some signs of fatigue I did discuss the option of a vacuum as I think it is low enough now at +2 station however she will continue to try and push if she runs out of energy she will let me know that the vacuum is an option Assessment & Plan Admission and Anticipated Discharge Date Admission Date: December 23, 2022 Results & Data Vital Signs (Past 12 Hours) Vital Signs Temp Pulse Resp BP Pulse Ox 12/23/22 19:15 91 12/23/22 19:15 111 H 12/23/22 19:08 90 12/23/22 19:08 124 H 12/23/22 18:58 96 12/23/22 18:58 100 H 12/23/22 18:48 95 12/23/22 18:48 103 H 12/23/22 18:38 94 12/23/22 18:38 108 H 12/23/22 18:35 18 12/23/22 18:35 98.1 F 18 12/23/22 18:28 96 12/23/22 18:28 130 H 12/23/22 18:19 98 H 12/23/22 18:19 135/75 12/23/22 18:18 97 12/23/22 18:18 130 H 12/23/22 18:08 97 12/23/22 18:08 94 H 12/23/22 18:00 98 H 12/23/22 18:00 137/76 12/23/22 17:58 99 12/23/22 17:58 125 H 12/23/22 17:49 20 12/23/22 17:49 98.1 F 20 12/23/22 17:48 96 12/23/22 17:48 137 H 12/23/22 17:43 102 H 12/23/22 17:43 151/75 H 12/23/22 17:38 100 12/23/22 17:38 128 H 12/23/22 17:30 88 L 12/23/22 17:30 109 H 12/23/22 17:28 99 12/23/22 17:28 99 H 12/23/22 17:28 125/65 12/23/22 17:21 90 12/23/22 17:21 111 H 12/23/22 17:18 99 12/23/22 17:18 97 H 12/23/22 17:13 96 H 12/23/22 17:13 137/72 12/23/22 17:08 99 12/23/22 17:08 99 H 12/23/22 16:59 90 12/23/22 16:59 127/77 12/23/22 16:58 99 12/23/22 16:58 93 H 12/23/22 16:48 98 12/23/22 16:48 97 H 12/23/22 16:43 99 H 12/23/22 16:43 152/72 H 12/23/22 16:38 100 12/23/22 16:38 101 H 12/23/22 16:28 98 12/23/22 16:28 82 12/23/22 16:28 83 12/23/22 16:28 141/72 H 12/23/22 16:18 96 12/23/22 16:18 81 12/23/22 16:13 88 12/23/22 16:13 136/65 12/23/22 16:08 98 12/23/22 16:08 89 12/23/22 15:58 97 12/23/22 15:58 75 12/23/22 15:58 135/79 12/23/22 15:48 96 12/23/22 15:48 78 12/23/22 15:45 18 12/23/22 15:45 97.5 F L 18 12/23/22 15:45 80 12/23/22 15:45 131/75 12/23/22 15:38 100 12/23/22 15:38 84 12/23/22 15:28 100 12/23/22 15:28 87 12/23/22 15:18 97 12/23/22 15:18 89 12/23/22 15:15 75 12/23/22 15:15 129/69 12/23/22 15:08 96 12/23/22 15:08 76 12/23/22 15:05 16 12/23/22 15:05 97.5 F L 16 12/23/22 14:59 87 12/23/22 14:59 137/73 12/23/22 14:58 97 12/23/22 14:58 87 12/23/22 14:48 96 12/23/22 14:48 78 12/23/22 14:44 92 H 12/23/22 14:44 130/70 12/23/22 14:38 97 12/23/22 14:38 81 12/23/22 14:29 88 12/23/22 14:29 138/90 12/23/22 14:28 96 12/23/22 14:28 97 H 12/23/22 14:23 88 L 12/23/22 14:23 104 H 12/23/22 14:18 97 12/23/22 14:18 88 12/23/22 14:13 78 12/23/22 14:13 128/58 L 12/23/22 14:08 97 12/23/22 14:08 78 12/23/22 13:58 97 12/23/22 13:58 77 12/23/22 13:58 138/78 12/23/22 13:55 18 12/23/22 13:55 98.2 F 18 12/23/22 13:48 96 12/23/22 13:48 82 12/23/22 13:43 76 12/23/22 13:43 154/87 H 12/23/22 13:38 97 12/23/22 13:38 77 12/23/22 13:28 96 12/23/22 13:28 78 12/23/22 13:28 151/88 H 12/23/22 13:18 96 12/23/22 13:18 80 12/23/22 13:13 81 12/23/22 13:13 130/78 12/23/22 13:08 96 12/23/22 13:08 71 12/23/22 12:59 76 12/23/22 12:59 135/83 12/23/22 12:58 96 12/23/22 12:58 73 12/23/22 12:48 96 12/23/22 12:48 77 12/23/22 12:43 75 12/23/22 12:43 127/72 12/23/22 12:38 96 12/23/22 12:38 76 12/23/22 12:29 83 12/23/22 12:29 129/72 12/23/22 12:28 96 12/23/22 12:28 84 12/23/22 12:18 96 12/23/22 12:18 91 H 12/23/22 12:13 81 12/23/22 12:13 127/71 12/23/22 12:12 91 12/23/22 12:12 79 12/23/22 12:08 93 12/23/22 12:08 79 12/23/22 12:07 75 12/23/22 12:07 124/67 12/23/22 12:06 90 12/23/22 12:06 92 H 12/23/22 11:58 94 12/23/22 11:58 85 12/23/22 11:46 94 12/23/22 11:46 92 H 12/23/22 11:44 96 12/23/22 11:44 102 H 12/23/22 11:42 96 H 12/23/22 11:42 114/64 12/23/22 11:39 95 12/23/22 11:39 103 H 12/23/22 11:35 88 12/23/22 11:35 128/66 12/23/22 11:34 95 12/23/22 11:34 91 H 12/23/22 11:31 107 H 12/23/22 11:31 112/68 12/23/22 11:29 96 12/23/22 11:29 96 H 12/23/22 11:28 94 12/23/22 11:28 102 H 12/23/22 11:24 96 12/23/22 11:24 96 H 12/23/22 11:23 102 H 12/23/22 11:23 138/72 12/23/22 11:19 96 12/23/22 11:19 100 H 12/23/22 11:15 94 12/23/22 11:15 96 H 12/23/22 11:14 96 12/23/22 11:14 101 H 12/23/22 11:09 96 12/23/22 11:09 93 H 12/23/22 11:06 92 12/23/22 11:06 107 H 12/23/22 11:04 97 12/23/22 11:04 102 H 12/23/22 11:01 91 12/23/22 11:01 98 H 12/23/22 10:59 98 12/23/22 10:59 98 H 12/23/22 10:54 95 12/23/22 10:54 108 H 12/23/22 10:49 98 12/23/22 10:49 96 H 12/23/22 10:44 97 12/23/22 10:44 91 H 12/23/22 10:21 84 12/23/22 10:21 129/76 12/23/22 09:31 83 12/23/22 09:31 135/91 12/23/22 08:15 98.4 F 100 H 16 130/73 12/23/22 07:36 100 H 130/73 Coding Level of Care Code None
--- NOTE | 2022-12-23 20:14 | Delivery Summary ---
Vaginal Delivery Summary Date of Service December 23, 2022 Vaginal Delivery Summary Vacuum-assisted delivery The patient has been pushing she became exhausted and requested help I discussed the option of a vacuum assisted delivery on my examination she did have an epidural was in occiput anterior position additionally the pelvis seemed adequate I could find no obvious cephalopelvic disproportion we did attempt to drain the bladder with a Deutsch however only drops of urine came out I did discuss the risks to the vacuum also the risk of the vacuum not working The vacuum was applied to the baby's occiput in the usual fashion after 2 pop- off's and 3 total contractions I was able to delivery the baby's head midline episiotomy was performed as well the baby's anterior shoulder was initially stuck but after gentle pressure on the posterior aspect of the shoulder I was able to push this down and then this was released then gentle traction easily delivered the baby no nuchal cord fluid was clear live baby baby did require some instant resuscitation but then became vigorous. Should be noted the time from delivery of the head to the shoulder was probably about 30 seconds and do not think this is a shoulder dystocia. Cord gases were obtained cord blood obtained placenta removed gentle traction episiotomy repaired with 3-0 Vicryl sponge and instrument counts correct there was no other tearing estimated blood loss 250 mL
--- NOTE | 2022-12-23 20:15 | Anesthesia Procedure Note ---
Date of Service December 23, 2022 Anesthesia Post Epidural Note Vital Signs Vital Signs: Temp Pulse Resp BP Pulse Ox 98.1 F 99 H 18 135/75 97 12/23/22 18:35 12/23/22 20:08 12/23/22 18:35 12/23/22 18:19 12/23/22 20:08 Pain Intensity Abdomen: Pain Intensity: 4 Notes Mental Status: alert / awake / arousable and participated in evaluation Nausea / Vomiting: adequately controlled Pain: adequately controlled Airway Patency, RR, SpO2: stable & adequate BP & HR: stable & adequate Hydration State: stable & adequate Neuraxial Anesthesia: was administered and sensory block is resolving Anesthetic Complications: no major complications apparent and Pt Satisfied with anesthetic care Epidural: Removed without complications and With tip intact
[2022-12-23] MEDS ORDERED: BENZOCAINE 20% SPRY 85 APPLN/85 GM CAN EXT PRN (20:35)
[2022-12-23] MEDS ORDERED: DIPHTHERIA/TETANUS/PERTUSSIS Vaccine (Tdap, Age 7+yrs) 0.5mL SYR/VL IM ONE (20:35)
[2022-12-23] MEDS ORDERED: ACETAMINOPHEN 325 MG TAB PO PRN (20:35)
[2022-12-23] MEDS ORDERED: bisacodyL 10 MG SUPP PR PRN (20:35)
[2022-12-23] MEDS ORDERED: oxyCODONE/ACETAMINOPHEN 5mg/325mg TAB PO PRN (20:35)
[2022-12-23] MEDS ORDERED: HYDROCORTISONE ACETATE 25 MG SUPP PR PRN (20:35)
[2022-12-23] MEDS: IBUPROFEN 600 MG TAB PO PRN (20:49)
[2022-12-23] MEDS: DOCUSATE SODIUM 100 MG CAP PO SCH (20:49)
[2022-12-23 20:53] LABS: Base Excess Cord Arterial Bld -5.8 mEq/L (-9-1.8); CO2 Cord Arterial Blood 68 mmHg (39.1-73.5); HCO3 Cord Arterial Blood 24 mmol/L (19.7-28.5); Oxygen Sat Cord Arterial Blood < 60.0 % (<60); PO2 Cord Arterial Blood 23 mmHg (4.1-31.7); pH Cord Arterial Blood 7.16 (7.1-7.38)
[2022-12-23 20:55] LABS: Base Excess Cord Venous Blood -5.2 mEq/L (-7.7-1.9); Cord Venous Blood HCO3 23 mmol/L (18.4-26.8); Cord Venous Blood PCO2 57 mmHg (30.4-57.2); Cord Venous Blood PO2 35 mmHg (14.1-43.3); Cord Venous Blood pH 7.22 (7.20-7.44); O2 Saturation Cord Venous Bld 70.6 % (<68)
[2022-12-23] MEDS: buprenorphine HCL 8 MG SUBL SL SCH (21:16)
[2022-12-24] MEDS: IBUPROFEN 600 MG TAB PO PRN ×4 (03:27→17:48)
[2022-12-24 07:28] LABS: Hematocrit (blood only) 28.1 % (37.0-47.0); Hemoglobin 9.7 g/dl (12.0-16.0); Mean Corpuscular Hemoglobin 31.8 pg (25.0-34.0); Mean Corpuscular Hgb Conc 34.5 g/dL (32.0-36.0); Mean Corpuscular Volume 92.1 fL (80.0-100.0); Mean Platelet Volume 10.5 fL (9.4-12.4); Platelet Count 208 K/uL (130-400); RDW Coefficient of Variation 12.8 % (11.5-14.5); RDW Standard Deviation 42.7 fL (36.4-46.3); Red Blood Count 3.05 M/uL (4.20-5.40); White Blood Count 12.29 K/ul (4.8-10.8)
--- NOTE | 2022-12-24 07:43 | Obstetrical Progress Note ---
Date of Service December 24, 2022 Assessment & Plan (1) care following vaginal delivery: Plan: Doing well Encourage ambulation Pain control Home tomorrow Admission and Anticipated Discharge Date Admission Date: December 23, 2022 Supervising Physician Co-Signing Physician Notes Resident Physician Supervision Note: I was present with Dr. Young during the history and exam. I discussed the case with the resident and agree with the findings and plan as documented in the note. Any exceptions or clarifications are listed here: [None] Documented By: Queta Matthews MD, FACOG Subjective 32 yo post day 1 s/p Ambulation: ambulating normally Voiding: no voiding problems Passing Gas:: Yes Diet Tolerance:: regular diet Lochia:: Small Feeding Type:: bottle feeding Current Pain Level: mild Resting comfortably this AM in NAD. Denies GALLAGHER, CP, SOB, N/V/D, LE pain/swelling. Review of Systems Review of Systems: reviewed, per HPI Physical Exam Physical Exam: General: patient resting comfortably, NAD, non-toxic in appearance, answers questions appropriately. Skin: warm, dry, intact HEENT: NC/AT, anicteric sclera, conjunctiva without injection, moist mucus membranes. Heart: +S1/S2, regular, no m/r/g Lungs: equal air entry bilaterally, no rales/rhonchi/wheezes Abd: +BS, soft, NT/ND, uterine fundus firm at umbilicus. Ext: warm, no clubbing/cyanosis or edema, Katelin's neg. Neuro: speech intact, no facial droop, moving all extremities on command. Results & Data Vital Signs (Past 12 Hours) Vital Signs Temp Pulse Pulse Resp BP BP BP 12/24/22 02:51 36.6 C 90 20 134/84 12/23/22 23:20 37 C 92 H 18 131/76 12/23/22 22:56 37.1 C 97 H 18 135/76 12/23/22 22:15 18 12/23/22 22:15 96 H 12/23/22 22:15 124/71 12/23/22 21:45 18 12/23/22 21:45 105 H 12/23/22 21:45 120/76 12/23/22 21:17 98 H 12/23/22 21:17 136/71 12/23/22 21:15 18 12/23/22 21:00 18 12/23/22 20:47 92 H 12/23/22 20:47 137/82 12/23/22 20:30 18 12/23/22 20:30 100 H 12/23/22 20:30 117/58 L 12/23/22 20:15 36.9 C 18 12/23/22 20:15 101 H 12/23/22 20:15 142/79 H 12/23/22 20:08 12/23/22 20:08 99 H 12/23/22 19:58 12/23/22 19:58 104 H 12/23/22 19:48 12/23/22 19:48 140 H Pulse Ox O2 Del Method 12/24/22 02:51 95 Room Air 12/23/22 23:20 95 Room Air 12/23/22 22:56 95 Room Air 12/23/22 22:15 12/23/22 22:15 12/23/22 22:15 12/23/22 21:45 12/23/22 21:45 12/23/22 21:45 12/23/22 21:17 12/23/22 21:17 12/23/22 21:15 12/23/22 21:00 12/23/22 20:47 12/23/22 20:47 12/23/22 20:30 12/23/22 20:30 12/23/22 20:30 12/23/22 20:15 12/23/22 20:15 12/23/22 20:15 12/23/22 20:08 97 12/23/22 20:08 12/23/22 19:58 97 12/23/22 19:58 12/23/22 19:48 98 12/23/22 19:48 Resident Activity Tracking Resident Involvement: Resident Care Provided Care Provided: Adult Hospital Medicine
[2022-12-24] MEDS: SERTRALINE HCL 50 MG TABLET PO SCH (08:02)
[2022-12-24] MEDS: DOCUSATE SODIUM 100 MG CAP PO SCH ×2 (08:02→20:33)
[2022-12-24] MEDS: PRENATAL VITAMIN 1 TAB PO SCH (08:02)
[2022-12-24] MEDS: buprenorphine HCL 8 MG SUBL SL SCH ×2 (08:03→17:49)
[2022-12-24 12:22] LABS: Amphetamines+Metham, Urine Neg (Neg); Barbiturates, Urine Neg (Neg); Benzodiazepine, Urine Neg (Neg); Cocaine, Urine Neg (Neg); MDMA (Ecstacy), Urine Neg (Neg); Methadone, Urine Neg (Neg); Opiate, Urine Neg (Neg); Phencyclidine, Urine Neg (Neg)
[2022-12-24] MEDS ORDERED: bisacodyL 5 MG TABEC PO SCH (20:00)
[2022-12-25] MEDS: IBUPROFEN 600 MG TAB PO PRN ×3 (01:07→15:21)
[2022-12-25 06:47] LABS: Hematocrit (blood only) 27.8 % (37.0-47.0); Hemoglobin 9.5 g/dl (12.0-16.0)
--- NOTE | 2022-12-25 07:08 | Obstetrical Progress Note ---
Date of Service December 25, 2022 Assessment & Plan (1) care following vaginal delivery: Plan: Doing well Encourage ambulation Pain control Discharge today Admission and Anticipated Discharge Date Admission Date: December 23, 2022 Supervising Physician Co-Signing Physician Notes Resident Physician Supervision Note: I was present with Dr. Young during the history and exam. I discussed the case with the resident and agree with the findings and plan as documented in the note. Any exceptions or clarifications are listed here: pt feels well this am. She is eating, voiding, ambulating. her spirits are good. she had neg tox screen yesterday and is aware we are looking to see about support for her upon dc and so planning consult with ss. she is expecting this. abd soft ff 2 down nt, ext nt calves. ppd#2 s/p . will be dc'd to nesting. rh pos, ri, bottlefeeding. plan 2 wk pp check due to mood. instructions otherwise reviewed. Documented By: Love Verdugo MD, FACOG Subjective 32 yo post day 1 s/p Ambulation: ambulating normally Voiding: no voiding problems Passing Gas:: Yes Diet Tolerance:: regular diet Lochia:: Small Feeding Type:: bottle feeding Current Pain Level: minimal Resting comfortably this AM in NAD. Denies GALLAGHER, CP, SOB, N/V/D, LE pain/swelling. Subutex on admission, baby may need to stay. Review of Systems Review of Systems: reviewed, per HPI Physical Exam Physical Exam: General: patient resting comfortably, NAD, non-toxic in appearance, answers questions appropriately. Skin: warm, dry, intact HEENT: NC/AT, anicteric sclera, conjunctiva without injection, moist mucus membranes. Heart: +S1/S2, regular, no m/r/g Lungs: equal air entry bilaterally, no rales/rhonchi/wheezes Abd: +BS, soft, NT/ND, uterine fundus firm at umbilicus. Ext: warm, no clubbing/cyanosis or edema, Katelin's neg. Neuro: speech intact, no facial droop, moving all extremities on command. Results & Data Vital Signs (Past 12 Hours) Vital Signs Temp Pulse Resp BP Pulse Ox O2 Del Method 12/25/22 00:09 36.5 C 81 20 132/83 99 Room Air 12/24/22 20:20 36.6 C 83 20 130/79 95 Room Air Resident Activity Tracking Resident Involvement: Resident Care Provided Care Provided: Adult Hospital Medicine
[2022-12-25] MEDS: SERTRALINE HCL 50 MG TABLET PO SCH (08:23)
[2022-12-25] MEDS: DOCUSATE SODIUM 100 MG CAP PO SCH (08:23)
[2022-12-25] MEDS: PRENATAL VITAMIN 1 TAB PO SCH (08:24)
== END 2022-12-25 18:35 | disposition home or self-care (01) | DRG 807 ==
LOC: 4S1 07:31 → 4E2 22:52